=== PATIENT | female | born 1995 | race Asian ===

== ENCOUNTER 2018-09-11 14:20 | Inpatient (IN) | payer OTHER ==
--- NOTE | 2018-09-11 14:44 | ED ---
Psychiatric Complaint - HPI Summary HPI Summary: A 23 year old female brought in by ambulance presents to the ED post suicide attempt. According to the patient, she attempted suicide by trying to jump out a window, but her family stopped her. She was in [place], where she lives, with her family on 09/09-09/10/2018 and came back to [place] for school on 09/11/2018. She saw a counselor who recommended she be hospitalized. She claims that she has a hard time maintaining herself. She admits to having SI and "sleeping too much". She takes stablon and alprazolam because of a Hx of depression. - History Of Current Complaint Chief Complaint: [facility]entalHealth Time Seen by Provider: 09/11/18 14:23 Hx Obtained From: Patient Onset/Duration: Gradual Onset, Lasting Days, Still Present Related History: Positive For: Prior Psychiatric Issues Has Suicidal: Reports: Thoughts, With A Plan, Has Prior Attempt(s) - Allergies/Home Medications Allergies/Adverse Reactions: Allergies Allergy/AdvReac Type Severity Reaction Status Date / Time sertraline [From Zoloft] Allergy Rash Verified 09/11/18 14:56 PMH/Surg Hx/FS Hx/Imm Hx Sensory History: Denies: Hx Deafness Psychiatric History: Reports: Hx Anxiety, Hx Depression Infectious Disease History: No Infectious Disease History: Denies: Traveled Outside the [place] in Last 30 Days - Family History Known Family History: Negative: Hypertension, Diabetes Review of Systems Negative: Fever Positive: Depressed, Other - positive: SI with a plan All Other Systems Reviewed And Are Negative: Yes Physical Exam - Summary Physical Exam Summary: VITAL SIGNS: Reviewed. GENERAL: Patient is a well-developed and nourished FEMALE who is lying comfortable in the stretcher. Patient is not in any acute respiratory distress. HEAD AND FACE: No signs of trauma. No ecchymosis, hematomas or skull depressions. No sinus tenderness. EYES: PERRLA, EOMI x 2, No injected conjunctiva, no nystagmus. EARS: Hearing grossly intact. Ear canals and tympanic membranes are within normal limits. MOUTH: Oropharynx within normal limits. NECK: Supple, trachea is midline, no adenopathy, no JVD, no carotid bruit, no c- spine tenderness, neck with full ROM. CHEST: Symmetric, no tenderness at palpation LUNGS: Clear to auscultation bilaterally. No wheezing or crackles. CVS: Regular rate and rhythm, S1 and S2 present, no murmurs or gallops appreciated. ABDOMEN: Soft, non-tender. No signs of distention. No rebound no guarding, and no masses palpated. Bowel sounds are normal. EXTREMITIES: FROM in all major joints, no edema, no cyanosis or clubbing. NEURO: Alert and oriented x 3. No acute neurological deficits. Speech is normal and follows commands. SKIN: Dry and warm PSYCH: Depressed and sad. Triage Information Reviewed: Yes Vital Signs On Initial Exam: Initial Vitals Temp Pulse Resp BP Pulse Ox 99.1 F 66 15 99/62 97 09/11/18 14:24 09/11/18 14:24 09/11/18 14:24 09/11/18 14:24 09/11/18 14:24 Vital Signs Reviewed: Yes Diagnostics - Vital Signs Vital Signs Temp Pulse Resp BP Pulse Ox 09/11/18 14:24 99.1 F 66 15 99/62 97 - Laboratory Result Diagrams: 09/11/18 14:49 09/11/18 14:49 Lab Statement: Any lab studies that have been ordered have been reviewed, and results considered in the medical decision making process. Re-Evaluation - Re-Evaluation First Eval Re-Evaluation Time: 14:45 Change: Unchanged Comment: patient is medically clear for MHE Course/Dx - Course Assessment/Plan: A 23 year old female brought in by ambulance presents to the ED post suicide attempt. Blood work w/o a significant abnormality. She is medically cleared. She is awaiting for a MHE. Patient is hemodynamically stable and A+O x 3. Dr. Magaña from the psychiatric services asessed the patient and he recommends admission to his services for further workup and management. - Differential Dx/Clinical Impression Differential Diagnosis/HQI/PQRI: Positive: Anxiety, Depression, Suicidal Ideation Provider Diagnosis: Depression - Physician Notifications Discussed Care Of Patient With: Nicolas Magaña Time Discussed With Above Provider: 16:50 Instructed by Provider To: Admit As Inpatient Discharge - Sign-Out/Discharge Documenting (check all that apply): Patient Departure - admit - Discharge Plan Condition: Fair Disposition: ADMITTED TO [facility] - Billing Disposition and Condition Condition: FAIR Disposition: Admitted to [facility] - Attestation Statements Document Initiated by Scribe: Yes Documenting Scribe: Issa Maynard Provider For Whom Scribe is Documenting (Include Credential): Jose Manuel Lizarraga MD Scribe Attestation: I, Issa Maynard, scribed for Jose Manuel Lizarraga MD on 09/12/18 at 1811. Scribe Documentation Reviewed: Yes Provider Attestation: The documentation as recorded by the theresaibe, Issa Maynard accurately reflects the service I personally performed and the decisions made by me, Jose Manuel Lizarraga MD Attestations User Type: Provider with Scribe Provider Attestation: The documentation recorded by the scribe accurately reflects the service I personally performed and the decisions made by me.
[2018-09-11 15:05] LABS: ABS Basophils 0 10^3/ul (0-0.2); ABS Eosinophils 0.1 10^3/ul (0-0.6); ABS Lymphocytes 1.2 10^3/ul (1.0-4.8); ABS Monocytes 0.2 10^3/ul (0-0.8); ABS Neutrophils 1.5 10^3/ul (1.5-7.7); ABS Nucleated RBC 0 10^3/ul; Eosinophil % 4.2 % (0-6); Hematocrit 37 % (35-47); Hemoglobin 12.3 g/dl (12.0-16.0); Lymphocyte % 38.9 % (25-47); Mean Corpuscular HGB Conc 34 g/dl (31-36); Mean Corpuscular Hemoglobin 31 pg (27-31); Mean Corpuscular Volume 93 fL (80-97); Mean Platelet Volume 7.2 fL (7.4-10.4); Nucleated Red Blood Cells % 0.1; Platelet Count 206 10^3/ul (150-450); Red Blood Count 3.94 10^6/ul (4.00-5.40); Red Cell Distribution Width 13 % (10.5-15); White Blood Count 3.1 10^3/ul (3.5-10.8)
[2018-09-11 15:42] LABS: EGFR Non-African American 135.4 (>60)
[2018-09-11 16:09] LABS: Urine Appearance Cloudy; Urine Blood Negative (Negative); Urine Color Yellow; Urine Ketones Negative (Negative); Urine Protein 1+(30 mg/dL) (Negative); Urine Red Blood Cell Trace(0-2/hpf) (Absent); Urine Specific Gravity 1.032 (1.010-1.030); Urine Urobilinogen Negative (Negative); Urine White Blood Cell Trace(0-5/hpf) (Absent)
[2018-09-11] MEDS ORDERED: Al Hydrox/Mg Hydrox/Simet LIQ* 30 ML UDC PO PRN (21:27)
[2018-09-11] MEDS ORDERED: Acetaminophen TAB* 325 MG PO PRN (21:27)
[2018-09-11] MEDS: hydrOXYzine HCL TAB* 50 MG PO PRN (22:59)
[2018-09-11] MEDS ORDERED: CMCS: FluvoxaMINE (NF) 50 MG TAB PO SCH (23:00)
[2018-09-12] MEDS ORDERED: [UNRECOGNIZED DRUG - OTHER] PO SCH (09:00)
[2018-09-12] MEDS ORDERED: [UNRECOGNIZED DRUG - OTHER] PO SCH (09:00)
[2018-09-12] MEDS: Vitamin THERAPEUTIC TAB PO SCH (12:55)
[2018-09-12] MEDS ORDERED: clonazePAM TAB(*) 0.5 MG PO SCH (14:00)
[2018-09-12] MEDS: Venlafaxine EXT RELEASE CAP* 37.5 MG PO SCH (14:50)
--- NOTE | 2018-09-12 16:07 | HP ---
H&P (Free Text) History and Physical: JUSTIFICATION FOR ADMISSION: Patient presented to emergency room with suicidal ideation, worsening depression and anxiety. She requires inpatient psychiatric admission in order to provide treatment and stabilization as she is a danger to herself. CHIEF COMPLAINT: "I was not seeing any point of living HISTORY OF THE PRESENT ILLNESS: Patient is a 23 y/o female, single, living with her room mates, attending [employer], with history of Major Depression. Patient was admitted to inpatient unit for worsening of depression, anhedonia, amotivation, hypersomnia , decrease energy, decrease in appetite, lack of concentration, isolating self and withdrawn behavior. Patient was missing days from school. Patient was having suicidal thought for about a month but got worsened last week with intensity and frequency. Patient went to see her therapist at [facility] and was brought to the hospital for further evaluation and treatment. Patient has been compliant with her current medications. Patient medications are from [facility] which includes Alprazolam and Flouvoxamine that is available in the [place] Patient other medications are Blonanserin and Tianeptine . 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 Patient reports no current or history of manic symptoms. Patient reports no psychotic symptoms. Patient continues to have passive suicidal ideation but no homicidal ideation on the unit. Patient continued to exhibit behavior that is in control and following redirections. PAST PSYCHIATRIC HISTORY: Patient was lonely when [place] came to [place] initially during her high school and reports first episode of severe depression in last year of her high school but came out of it with out any treatment. Patient has history of psychiatric treatment during Sophomore year for severed depression following her break up with her boyfriend at [employer]. Patient took medical leave and went to [facility] for her treatment. Patient was there for eight months and [place] this [place] May. Patient continues to take her medication that she was taking in [facility] with limited improvement in her depression. Patient has history of outpatient psychiatric treatment for her depression in [facility] and then at [facility]. Patient sees a therapist at [facility]. Patients medications are as mentioned in HPI. Patient reports not tolerating Zoloft and had a Rash. Patient has history of suicidal thoughts but no attempt or plan. Patient has history of homicidal threats but no intent or attempt. Patient reports no history of aggressive and agitated behavior when decompensates. No access to firearm reported. SUBSTANCE ABUSE HISTORY: Patient denies any substance, medication or alcohol abuse. Urine toxicology was positive for benzodiazepine. PAST MEDICAL HISTORY: No active medical problems ALLERGIES: Sertraline -Rash FAMILY PSYCHIATRIC HISTORY: Patient reports no family history of psychiatric illness or substance abuse. Patient reported no suicide in the family. FAMILY/PSYCHOSOCIAL HISTORY: Patient currently lives with room mates in student housing. Patient reports some support from her room mates. Patient is single. Patient has no children. Patient education level is currently [employer] at [employer] program. Patient was raised by her parents in [place] and reports no difficulty during child rai. Patient reportedly took step to relocate to [place] by herself to pursue her high school education at a Boarding school. 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 Patient support system includes her mother who is staying in [place] with patient's brothers. REVIEW OF SYSTEMS: Patients review of symptoms was negative for any physical complaint. Patient vitals were stable, labs reviewed. Patients ED physical exam was reviewed which is grossly normal with no active medical problem. Physical Exam Summary: VITAL SIGNS: Reviewed. GENERAL: Patient is a well-developed and nourished FEMALE who is lying comfortable in the stretcher. Patient is not in any acute respiratory distress. HEAD AND FACE: No signs of trauma. No ecchymosis, hematomas or skull depressions. No sinus tenderness. EYES: PERRLA, EOMI x 2, No injected conjunctiva, no nystagmus. EARS: Hearing grossly intact. Ear canals and tympanic membranes are within normal limits. MOUTH: Oropharynx within normal limits. NECK: Supple, trachea is midline, no adenopathy, no JVD, no carotid bruit, no c- spine tenderness, neck with full ROM. CHEST: Symmetric, no tenderness at palpation LUNGS: Clear to auscultation bilaterally. No wheezing or crackles. CVS: Regular rate and rhythm, S1 and S2 present, no murmurs or gallops appreciated. ABDOMEN: Soft, non-tender. No signs of distention. No rebound no guarding, and no masses palpated. Bowel sounds are normal. EXTREMITIES: FROM in all major joints, no edema, no cyanosis or clubbing. NEURO: Alert and oriented x 3. No acute neurological deficits. Speech is normal and follows commands. SKIN: Dry and warm PSYCH: Depressed and sad. MENTAL STATUS EXAMINATION: Appearance: 23 y/o female, making poor eye contact, fair hygiene and grooming, dressed casually Behavior: cooperative Gait: normal Abnormal motor activity: psychomotor retardation Speech: soft, low tone and volume Mood: "no motivation" Affect: depressed, constricted Thought process: goal directed Thought Content: Suicidal/Homicidal ideation: passive si, no hi Delusions: none Obsessions: none Phobia: none Perceptual disturbance: none Attention: fair Orientation: grossly intact Concentration: impaired Memory: fair Insight: fair Judgment: fair Impulse control: fair IMPRESSION: Patient with history of Depression. Patient currently admitted due to worsening of Depression and suicidal thoughts. Patient has also struggled with academic performance and have limited social support. Patient is a danger to self if discharged hence will be stabilized on inpatient unit with medication adjustments and therapy. DIAGNOSIS: Major Depressive Disorder Severe, recurrent Episode, Anxiety unspecified PLAN: Admit to [facility] on Q 15 min observation. Patient is full code. Patient is on voluntary admission status Integrate patient into the milieu Individual and group psychotherapy MMPI and psychological consult with Dr. Harding. Social work consult for therapy and discharge planning Will hold family meeting with parents to increase Data base. Patient gave informed consent to start the following medications: Patient's medications were adjusted after informed consent. Also changed due to unavailability of it in the [place] Patient antipsychotic medication Blonanserin was discontinued given patient concern of psychomotor retardation, and no reported psychotic symptoms. But will continue to monitor for any relapse in any psychotic symptoms. Patient Tianeptine and Flouvoxamine were disconitnued and started on low dose Effexor XR 37.5 mg QAM fro depression and anxiety. Patient was also switched from Alprazolam to Clonazepam for better and stable control of anxiety with plan to adjust accordingly. Patient to use Hydroxyzine PRN for sleep. Will continue to monitor and f/u for improvement and side effects. Lexy Mckeon MD Attending Psychiatrist
[2018-09-12] MEDS: clonazePAM TAB(*) 0.5 MG PO SCH (20:59)
[2018-09-12] MEDS: hydrOXYzine HCL TAB* 50 MG PO PRN (23:50)
[2018-09-13] MEDS: clonazePAM TAB(*) 0.5 MG PO SCH (10:25)
[2018-09-13] MEDS: Venlafaxine EXT RELEASE CAP* 37.5 MG PO SCH (10:25)
[2018-09-13] MEDS: Vitamin THERAPEUTIC TAB PO SCH (10:25)
[2018-09-13] MEDS ORDERED: Venlafaxine EXT RELEASE CAP* 37.5 MG PO ONE (11:40)
[2018-09-13] MEDS ORDERED: clonazePAM TAB(*) 0.5 MG PO PRN (11:44)
--- NOTE | 2018-09-13 11:54 | PN ---
Subjective - Subjective Date of Service: 09/13/18 Service Type: 40469 Hosp care 15 min low complexity Subjective: Patient was seen by self, discussed with treatment team, chart was reviewed. Patient has been compliant with her adjusted medications, no reported side effects. Patient reports minimal improvement in her energy level and motivation , less psychomotor retardation, difficulty sleeping last night with racing thoughts and worries. Patient sleeping has been disturbed due to that. Patient eating has been fair but has been staying in her room most of the day and limited engagement in groups. Patient has been cooperative with staff. Patient behavior has been in control and safe on all checks. Patient mood was less anxious and less dysphoric. Patient reports that her mother came to see her yesterday but geovanna that patient did not communicate with her that much and was more involved in solving a puzzle with her. Patient has been reporting no suicidal or homicidal ideation. No psychotic symptoms of delusions or hallucinations. Objective - Appearance Appearance: Thin Framed Dysmorphic Features: No Hygiene: Normal Grooming: Fairly Well Kept - Behavior Psychomotor Activities: Abnormal-Decreased - minor improvement Exhibits Abnormal Movement: No - Attitude and Relatedness Attitude and Relatedness: Cooperative Eye Contact: Fair - Speech Quality: Unpressured Latencies: Normal Quantity: Appropriate - Mood Patient's Decription of Mood: "Fine" - Affect Observed Affect: Depressed Affect Consistent with: Dysphoria - Thought Process Patient's Thought Process: Coherent Thought Content: No Passive Wish, No Suicidal Planning, No Homicidal Ideation, No Paranoid Ideation - Sensorium Experiencing Hallucinations: No, Sensorium is Clear Type of Hallucinations: Visual: No, Auditory: No, Command: No - Level of Consciousness Level of Consciousness: Alert Orientation: Yes Intact, Yes Orientated to Time, Yes Orientated to Place, Yes Orientated to Person - Impulse Control Impulse Control: Intact - Insight and Judgement Insight and Judgement: Fair - Group Participation Particating in Group Activities: Yes - Medication Management Medication Management Adherence: Yes Assessment - Assessment Merits Inpatient Hospitalization: For Immediate Safety, For Stabilization, For Discharge Planning Inpatient DSM-V Dx: F33.9 Clinical Impression: Patient is 23 y/o female with history of Depression. Patient currently admitted due to worsening of Depression and suicidal thoughts. Patient has also struggled with academic performance which is a major stress and have limited social support. Patient is a danger to self if discharged hence will be stabilized on inpatient unit with medication adjustments and therapy. MHU: Problem List - Patient Problems (1) Major depress dis, severe Current Visit: Yes Status: Acute Code(s): F32.2 - MAJOR DEPRESSV DISORD, SINGLE EPSD, SEV W/O PSYCH FEATURES SNOMED Code(s): 596488155 Plan - Plan Treatment Plan: Name: CECILIA SMITH Birthdate: 1995 [id number] - Patient continues to be hospitalized due to recent suicidal thoughts and sever depression. - Patient's medications were adjusted after informed consent with increment in Effexor XR to 75 mg PO QAM and Seroquel at low dose was started to address sleep disturbance and racing thoughts. Patient Clonazepam was changed to as needed fro anxiety. - Patient will be monitored for improvement and side effects. Risk and benefits were discussed. - Patient was encouraged to continue his participation in the milieu, group and individual therapy. Medications: Current Medications Acetaminophen (Tylenol Tab*) 650 mg PO Q4H PRN PRN Reason: PAIN or TEMP > 101 F Al Hydrox/Mg Hydrox/Simethicone (Maalox Plus*) 30 ml PO Q4H PRN PRN Reason: INDIGESTION Clonazepam (Klonopin Tab(*)) 0.25 mg PO BID PRN PRN Reason: ANXIETY Multivitamins (Theragran Tab*) 1 tab PO DAILY [facility] Last Admin: 09/13/18 10:25 Dose: 1 tab Quetiapine Fumarate (Seroquel Tab*) 25 mg PO BEDTIME [facility] Venlafaxine HCl (Effexor Xr Cap*) 75 mg PO DAILY [facility]
[2018-09-13] MEDS ORDERED: QUEtiapine TAB* 25 MG PO SCH (21:00)
[2018-09-14] MEDS: Venlafaxine EXT RELEASE CAP* 37.5 MG PO SCH (10:57)
[2018-09-14] MEDS: Vitamin THERAPEUTIC TAB PO SCH (10:57)
--- NOTE | 2018-09-14 15:16 | PN ---
Subjective - Subjective Date of Service: 09/14/18 Service Type: 88722 Hosp care 15 min low complexity Subjective: Cecilia Grande is seen in weekend coverage for Dr. Mckeon. She reports improved mood and resolution of SI, however, she continues to experience insomnia with early awakening and racing thoughts throughout the day. She is calm and cooperative on interview, more social with peers today. She is requesting discharge on Sunday. Objective - Appearance Appearance: Well Developed/Nourished Dysmorphic Features: No Hygiene: Normal Grooming: Well Kept - Behavior Psychomotor Activities: Normal Exhibits Abnormal Movement: No - Attitude and Relatedness Attitude and Relatedness: Cooperative Eye Contact: Fair - Speech Quality: Unpressured Latencies: Normal Quantity: Appropriate - Mood Patient's Decription of Mood: "Okay" - Affect Observed Affect: Fair Affect Consistent with: Euthymia - Thought Process Patient's Thought Process: Coherent Thought Content: No Passive Wish, No Suicidal Planning, No Homicidal Ideation, No Paranoid Ideation - Sensorium Experiencing Hallucinations: No, Sensorium is Clear Type of Hallucinations: Visual: No, Auditory: No, Command: No - Level of Consciousness Level of Consciousness: Alert Orientation: Yes Intact, Yes Orientated to Time, Yes Orientated to Place, Yes Orientated to Person - Impulse Control Impulse Control: Intact - Insight and Judgement Insight and Judgement: Good - Group Participation Particating in Group Activities: Yes - Medication Management Medication Management Adherence: Yes Assessment - Assessment Merits Inpatient Hospitalization: Consolidate Improvements, Pending Safe DC Plan Inpatient DSM-V Dx: F33.9 Clinical Impression: Patient is 23 y/o female with history of Depression. Patient currently admitted due to worsening of Depression and suicidal thoughts. Patient has also struggled with academic performance which is a major stress and have limited social support. Patient is a danger to self if discharged hence will be stabilized on inpatient unit with medication adjustments and therapy. Plan - Plan Treatment Plan: Name: CECILIA SMITH Birthdate: 1995 [id number] The patient is tolerating quetiapine and venlafaxine well. We will increase quetiapine from 25 to 50mg at night. Continue inpatient treatment. Continued Medication Management: Different Medication Medications: Current Medications Acetaminophen (Tylenol Tab*) 650 mg PO Q4H PRN PRN Reason: PAIN or TEMP > 101 F Al Hydrox/Mg Hydrox/Simethicone (Maalox Plus*) 30 ml PO Q4H PRN PRN Reason: INDIGESTION Clonazepam (Klonopin Tab(*)) 0.25 mg PO BID PRN PRN Reason: ANXIETY Multivitamins (Theragran Tab*) 1 tab PO DAILY [facility] Last Admin: 09/14/18 10:57 Dose: 1 tab Venlafaxine HCl (Effexor Xr Cap*) 75 mg PO DAILY [facility] Last Admin: 09/14/18 10:57 Dose: 75 mg - Discharge Plan Discharge Plan: Outpatient Follow Up Outpatient Program: Counseling[facility] Services at [facility]
[2018-09-14] MEDS: QUEtiapine TAB* 25 MG PO SCH (21:06)
[2018-09-15] MEDS: Venlafaxine EXT RELEASE CAP* 37.5 MG PO SCH (11:04)
[2018-09-15] MEDS: Vitamin THERAPEUTIC TAB PO SCH (11:05)
[2018-09-15] MEDS: QUEtiapine TAB* 25 MG PO SCH (21:56)
[2018-09-16 08:09] VITALS: BP 103/65
[2018-09-16] MEDS: Vitamin THERAPEUTIC TAB PO SCH (09:10)
[2018-09-16] MEDS: Venlafaxine EXT RELEASE CAP* 37.5 MG PO SCH (09:10)
--- NOTE | 2018-09-16 13:03 | DS ---
Subjective - Subjective Service Types: [id number] [facility] Day Mgmt complex over 30 min Discharge Date: 09/16/18 Subjective: JUSTIFICATION FOR ADMISSION: Patient presented to emergency room with suicidal ideation, worsening depression and anxiety. She requires inpatient psychiatric admission in order to provide treatment and stabilization as she is a danger to herself. CHIEF COMPLAINT: "I was not seeing any point of living HISTORY OF THE PRESENT ILLNESS: Patient is a 23 y/o female, single, living with her room mates, attending [employer] [facility] [employer]3], with history of Major Depression. Patient was admitted to inpatient unit for worsening of depression, anhedonia, amotivation, hypersomnia , decrease energy, decrease in appetite, lack of concentration, isolating self and withdrawn behavior. Patient was missing days from school. Patient was having suicidal thought for about a month but got worsened last week with intensity and frequency. Patient went to see her therapist at [facility] and was brought to the hospital for further evaluation and treatment. Patient has been compliant with her current medications. Patient medications are from [facility] which includes Alprazolam and Flouvoxamine that is available in the [place] Patient other medications are Blonanserin and Tianeptine . 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 Patient reports no current or history of manic symptoms. Patient reports no psychotic symptoms. Patient continues to have passive suicidal ideation but no homicidal ideation on the unit. Patient continued to exhibit behavior that is in control and following redirections. PAST PSYCHIATRIC HISTORY: Patient was lonely when she came to [place] initially during her high school and reports first episode of severe depression in last year of her high school but came out of it with out any treatment. Patient has history of psychiatric treatment during Sophomore year for severed depression following her break up with her boyfriend at [employer] [facility]3]. Patient took medical leave and went to [facility] for her treatment. Patient was there for eight months and returned to [place] this year May. Patient continues to take her medication that she was taking in [facility] with limited improvement in her depression. Patient has history of outpatient psychiatric treatment for her depression in [facility] and then at [facility]. Patient sees a therapist at [facility]. Patients medications are as mentioned in HPI. Patient reports not tolerating Zoloft and had a Rash. Patient has history of suicidal thoughts but no attempt or plan. Patient has history of homicidal threats but no intent or attempt. Patient reports no history of aggressive and agitated behavior when decompensates. No access to firearm reported. SUBSTANCE ABUSE HISTORY: Patient denies any substance, medication or alcohol abuse. Urine toxicology was positive for benzodiazepine. PAST MEDICAL HISTORY: No active medical problems ALLERGIES: Sertraline -Rash FAMILY PSYCHIATRIC HISTORY: Patient reports no family history of psychiatric illness or substance abuse. Patient reported no suicide in the family. FAMILY/PSYCHOSOCIAL HISTORY: Patient currently lives with room mates in student housing. Patient reports some support from her room mates. Patient is single. Patient has no children. Patient education level is currently [employer] at [employer] program. Patient was raised by her parents in [place] and reports no difficulty during child rai. Patient reportedly took step to relocate to [place] by herself to pursue her high school education at a Boarding school. 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 Patient support system includes her mother who is staying in [place] with patient's brothers. REVIEW OF SYSTEMS: Patients review of symptoms was negative for any physical complaint. Patient vitals were stable, labs reviewed. Patients ED physical exam was reviewed which is grossly normal with no active medical problem. Physical Exam Summary: VITAL SIGNS: Reviewed. GENERAL: Patient is a well-developed and nourished FEMALE who is lying comfortable in the stretcher. Patient is not in any acute respiratory distress. HEAD AND FACE: No signs of trauma. No ecchymosis, hematomas or skull depressions. No sinus tenderness. EYES: PERRLA, EOMI x 2, No injected conjunctiva, no nystagmus. EARS: Hearing grossly intact. Ear canals and tympanic membranes are within normal limits. MOUTH: Oropharynx within normal limits. NECK: Supple, trachea is midline, no adenopathy, no JVD, no carotid bruit, no c- spine tenderness, neck with full ROM. CHEST: Symmetric, no tenderness at palpation LUNGS: Clear to auscultation bilaterally. No wheezing or crackles. CVS: Regular rate and rhythm, S1 and S2 present, no murmurs or gallops appreciated. ABDOMEN: Soft, non-tender. No signs of distention. No rebound no guarding, and no masses palpated. Bowel sounds are normal. EXTREMITIES: FROM in all major joints, no edema, no cyanosis or clubbing. NEURO: Alert and oriented x 3. No acute neurological deficits. Speech is normal and follows commands. SKIN: Dry and warm PSYCH: Depressed and sad. MENTAL STATUS EXAMINATION On ADMISSION: Appearance: 23 y/o female, making poor eye contact, fair hygiene and grooming, dressed casually Behavior: cooperative Gait: normal Abnormal motor activity: psychomotor retardation Speech: soft, low tone and volume Mood: "no motivation" Affect: depressed, constricted Thought process: goal directed Thought Content: Suicidal/Homicidal ideation: passive si, no hi Delusions: none Obsessions: none Phobia: none Perceptual disturbance: none Attention: fair Orientation: grossly intact Concentration: impaired Memory: fair Insight: fair Judgment: fair Impulse control: fair DIAGNOSIS On ADMISSION: Major Depressive Disorder Severe, recurrent Episode, Anxiety unspecified DIAGNOSIS On DISCHARGE: Major Depressive Disorder Severe, recurrent Episode, Anxiety unspecified Objective - Appearance Appearance: Healthy Appearing Dysmorphic Features: No Hygiene: Normal Grooming: Fairly Well Kept - Behavior Psychomotor Activities: Normal Exhibits Abnormal Movement: No - Attitude and Relatedness Attitude and Relatedness: Cooperative Eye Contact: Fair - Speech Quality: Unpressured Latencies: Normal Quantity: Appropriate - Mood Patient's Decription of Mood: "Fine" - Affect Observed Affect: Fair Affect Consistent with: Euthymia - Thought Process Patient's Thought Process: Coherent Thought Content: No Passive Wish, No Suicidal Planning, No Homicidal Ideation, No Paranoid Ideation - Sensorium Experiencing Hallucinations: No, Sensorium is Clear Type of Hallucinations: Visual: No, Auditory: No, Command: No - Level of Consciousness Level of Consciousness: Alert Orientation: Yes Intact, Yes Orientated to Time, Yes Orientated to Place, Yes Orientated to Person - Impulse Control Impulse Control: Intact - Insight and Judgement Insight and Judgement: Fair - Group Participation Particating in Group Activities: Yes - Medication Management Medication Management Adherence: Yes Treatment Course & Assessment Clinical Course & Impression: Patient is 23 y/o female with history of Depression. Patient currently admitted due to worsening of Depression and suicidal thoughts. Patient has also struggled with academic performance which is a major stress and have limited social support. Patient was a danger to self if discharged hence will be stabilized on inpatient unit with medication adjustments and therapy. Tiki was admitted to [facility] on Q 15 min observation. Patient is full code. Patient was on voluntary admission status. Patient was integrated into the milieu, Individual and group psychotherapy. MMPI and psychological consult with Dr. Harding. Which was suggestive of severe depression with some paranoia and thought to be likely due to recent break up. Social work was consulted for therapy and discharge planning. Family meeting with parents was held to increase data base and help with treatment and discharge planning. Patient reported to have no reported history of psychotic symptoms as per mother. Patient gave informed consent to adjust her medications. Patient antipsychotic medication Blonanserin was discontinued given patient concern of psychomotor retardation, and no reported psychotic symptoms. And was monitored for any relapse in any psychotic symptoms. Patient Tianeptine and Flouvoxamine were discontinued and started on low dose Effexor XR 37.5 mg QAM fro depression and anxiety. Patient was also switched from Alprazolam to Clonazepam for better and stable control of anxiety with plan to adjust accordingly. Patient to use Hydroxyzine PRN for sleep. Patient during initial days was compliant with her adjusted medications, no reported side effects. Patient did report minimal improvement in her energy level and motivation, less psychomotor retardation, difficulty sleeping at night with racing thoughts and worries. Patient sleeping was disturbed due to that. Patient was isolative and stayed in her room most of the day and had limited engagement in groups. Patient behavior has been in control and safe on all checks. Patient mood was less anxious and less dysphoric. Patient has been reporting no suicidal or homicidal ideation. Patient reported No psychotic symptoms of delusions or hallucinations and did not appear to be internally preoccupied by staff. Patient's medications were adjusted further after informed consent with increment in Effexor XR to 75 mg PO QAM and Seroquel at low dose was started to address sleep disturbance and racing thoughts. Patient Clonazepam was changed to as needed for anxiety which she did not need to utilize. She reported improvement in mood and resolution of SI, she continued to experience insomnia with early awakening and racing thoughts and responded well to Seroquel 50 mg at Bedtime. Patient improved, mood was table, less depressed and less anxious, wanted to be discharge. Patient was not a danger to self and others, was more into groups and milieu and planning goals for herself and willing to follow up outpatient. Patient was not psychotic, not manic, no si/hi hence after discussing with team patient was discharged with plan to follow up outpatient therapy and medication management. Merits Inpatient Hospitalization: No Clear for Discharge: Adequate Clinical Respons, Acceptable Safety Profile, Low Utility of In Care Inpatient DSM-V Dx: F33.9 Discharge Planning - Discharge Planning Discharge Plan: Outpatient Follow Up Recommendations for Continuing Care: Medication Management, Psychotherapy Medications: Current Medications Quetiapine Fumarate (Seroquel Tab*) 50 mg PO BEDTIME [facility] Last Admin: 09/15/18 21:56 Dose: 50 mg Venlafaxine HCl (Effexor Xr Cap*) 75 mg PO DAILY [facility] Last Admin: 09/16/18 09:10 Dose: 75 mg Discharge Planning: Prescriptions provided for discharge [x] Yes [] No Follow up care details as per social work arrangements. Patient response to discharge plan: [x] eager for discharge [] agreeable with discharge plan [] ambivalent about discharge [] disagrees with discharge today
== END 2018-09-16 13:05 | disposition home or self-care (01) | DRG 885 ==
LOC: ED 14:20 → BSU 17:03
PROVIDERS: ADMIT Psychiatry & Neurology Psychiatry; ATTEND Psychiatry & Neurology Psychiatry
DX: F33.2 Major depressive disorder, recurrent severe without psychotic features (principal); R45.851 Suicidal ideations; F41.9 Anxiety disorder, unspecified; Z88.8 Allergy status to other drugs, medicaments and biological substances
CPT/HCPCS: 36415; 80053; 80061; 80307; 80320; 80329; 81003; 81015; 83036; 84443; 85025; 87086; 99222; 99231; 99238; 99284; A9270-GY; G0480

== ENCOUNTER 2019-10-04 23:35 | Emergency (ER) | payer OTHER ==
--- NOTE | 2019-10-05 00:36 | ED ---
Head Injury - HPI Summary HPI Summary: 24-year-old male presents with head injury since last week. States she bumped her head on the wall. States that since then she has been off. She states was nausea but that has resolved. She denies any vomiting. Patient was dizzy but that has resolved. States she's been having intermittent headache. States that every time she goes outside she gets a headache. she admits to photophobia. Denies any neck pain. She hasn't followed up with anyone since. She has been taking Tylenol occasionally. No history of head injuries or migraines. Has history of depression. - History Of Current Complaint Chief Complaint: EDHeadInjury Stated Complaint: HIT HEAD AGAINST WALL Time Seen by Provider: 10/05/19 00:16 Pain Intensity: 5 - Allergies/Home Medications Allergies/Adverse Reactions: Allergies Allergy/AdvReac Type Severity Reaction Status Date / Time sertraline [From Zoloft] Allergy Rash Verified 10/04/19 23:40 PMH/Surg Hx/FS Hx/Imm Hx Endocrine/Hematology History: Denies: Hx Anticoagulant Therapy Respiratory History: Denies: Hx Asthma Sensory History: Reports: Hx Contacts or Glasses Denies: Hx Deafness, Hx Hearing Aid Opthamlomology History: Reports: Hx Contacts or Glasses Psychiatric History: Reports: Hx Anxiety, Hx Depression, Hx Inpatient Treatment , Hx Community Mental Health Tx, Hx Suicide Attempt Denies: Hx Attention Deficit Hyperactivity Disorder, Hx Eating Disorder, Hx Panic Disorder, Hx Post Traumatic Stress Disorder, Hx Schizophrenia, Hx Bipolar Disorder, Hx of Violent Episodes Against Others, Hx Substance Abuse Infectious Disease History: No Infectious Disease History: Denies: Traveled Outside the [place] in Last 30 Days - Family History Known Family History: Negative: Hypertension, Diabetes - Social History Alcohol Use: None Substance Use Type: Reports: None Smoking Status (MU): Never Smoked Tobacco Review of Systems Negative: Fever Negative: Chest Pain Negative: Shortness Of Breath Negative: Vomiting Positive: Headache All Other Systems Reviewed And Are Negative: Yes Physical Exam Triage Information Reviewed: Yes Vital Signs On Initial Exam: Initial Vitals Temp Pulse Resp BP Pulse Ox 97.2 F 74 16 120/74 97 10/04/19 23:38 10/04/19 23:38 10/04/19 23:38 10/04/19 23:38 10/04/19 23:38 Vital Signs Reviewed: Yes Appearance: Positive: Well-Appearing Skin: Positive: Warm, Dry Head/Face: Positive: Normal Head/Face Inspection Eyes: Positive: Normal, EOMI, TEJAS, Conjunctiva Clear ENT: Positive: Normal ENT inspection, Pharynx normal, TMs normal Neck: Positive: Other: - nontender neck, full ROM neck Respiratory/Lung Sounds: Positive: Clear to Auscultation, Breath Sounds Present Cardiovascular: Positive: Normal, RRR Musculoskeletal: Positive: Normal Neurological: Positive: Sensory/Motor Intact, Alert, Oriented to Person Place, Time, CN Intact II-III Psychiatric: Positive: Normal - Gloria Coma Scale Best Eye Response: 4 - Spontaneous Best Motor Response: 6 - Obeys Commands Best Verbal Response: 5 - Oriented Coma Scale Total: 15 Procedures - Sedation Patient Received Moderate/Deep Sedation with Procedure: No Diagnostics - Vital Signs Vital Signs Temp Pulse Resp BP Pulse Ox 10/04/19 23:38 97.2 F 74 16 120/74 97 - Laboratory Lab Statement: Any lab studies that have been ordered have been reviewed, and results considered in the medical decision making process. Head Injury Course/Dx Course Of Treatment: 24-year-old male presents with head injury since last week. States she bumped her head on the wall. States that since then she has been off. She states was nausea but that has resolved. She denies any vomiting. Patient was dizzy but that has resolved. States she's been having intermittent headache. States that every time she goes outside she gets a headache. she admits to photophobia. Denies any neck pain. She hasn't followed up with anyone since. She has been taking Tylenol occasionally. No history of head injuries or migraines. Has history of depression. On exam has normal neuro exam. According to [facility] rules does not need any head imaging. gave concussion precautions. Told to follow-up [place]. Patient understands and agrees the plan. - Diagnoses Differential Diagnosis/HQI/PQRI: Concussion Without LOC, Contusion, Intracranial Bleed Provider Diagnoses: Head injury Discharge ED - Sign-Out/Discharge Documenting (check all that apply): Patient Departure - Discharge Plan Condition: Good Disposition: HOME Patient Education Materials: Concussion (ED) Referrals: [facility] - Wiley MORAN [Primary Care Provider] - Additional Instructions: Place ice on area as needed Take Tylenol or ibuprofen for headache every 6 hours Modify activities as tolerated Follow up with [facility] within 2 days Return to ED if develop vomiting or any new or worsening symptoms - Billing Disposition and Condition Condition: GOOD Disposition: Home
[2019-10-05 01:17] VITALS: BP 108/78
== END 2019-10-05 01:10 | disposition home or self-care (01) ==
LOC: ED 23:35
DX: S09.90XA Unspecified injury of head, initial encounter (principal); W22.01XA Walked into wall, initial encounter; Y92.9 Unspecified place or not applicable; F41.9 Anxiety disorder, unspecified; F32.9 Major depressive disorder, single episode, unspecified; Z88.8 Allergy status to other drugs, medicaments and biological substances
CPT/HCPCS: 99282